=== PATIENT | male | born 1965 | race Caucasian/White ===

== ENCOUNTER 2020-08-01 01:38 | Emergency (ER) | payer MEDICAID ==
[~2020-08-01] VITALS: Ht 170.2 cm; Wt 86.0 kg
[2020-08-01 01:48] VITALS: BP 132/84
== END 2020-08-01 04:45 | disposition home or self-care (01) ==
LOC: ER 01:38
DX: H61.23 Impacted cerumen, bilateral (principal); I10 Essential (primary) hypertension; E78.5 Hyperlipidemia, unspecified
CPT/HCPCS: 99283

== ENCOUNTER 2021-07-04 11:05 | Emergency (ER) | payer MEDICAID ==
[~2021-07-04] VITALS: Ht 157.5 cm; Wt 98.7 kg
[2021-07-04 11:11] VITALS: BP 155/102
[2021-07-04] MEDS ORDERED: ACETAMINOPHEN 325MG TABLET PO STA (12:06)
[2021-07-04 12:35] LABS: BASOPHILS % 0.7 % (0.0-2.0); HEMATOCRIT. 44.6 % (42.0-52.0); LYMPHOCYTES % 21.6 % (20.0-50.0); MEAN CORPUSCULAR HEMOGLOBIN 30.5 pg (28.0-32.0); MEAN CORPUSCULAR VOLUME 90.2 fL (80.0-94.0); MEAN PLATELET VOLUME 8.1 fl (7.4-10.4); MONOCYTES % 8.3 % (2.0-8.0); NEUTROPHILS % 65.4 % (40.0-76.0); PLATELET 236 x1000/uL (130-400); RED BLOOD CELL COUNT 4.94 mill/uL (4.7-6.1); RED CELL DISTRIBUTION WIDTH 14.5 % (11.6-14.6)
[2021-07-04 12:42] LABS: CHLORIDE 106 mEq/L (98-107)
[2021-07-04 12:46] LABS: PROTHROMBIN TIME 11.1 sec (9.6-11.0)
[2021-07-04] MEDS ORDERED: TOPUD MT (14:27)
== END 2021-07-04 14:41 | disposition home or self-care (01) ==
LOC: ER 11:05
DX: M79.602 Pain in left arm (principal); I10 Essential (primary) hypertension; E78.00 Pure hypercholesterolemia, unspecified
CPT/HCPCS: 36415; 71045; 80053; 83880; 84484; 85025; 93005; 99285